=== PATIENT | female | born 1975 | race Caucasian/White ===

== ENCOUNTER 2021-02-04 17:35 | Emergency (ER) | payer SELFPAY ==
[~2021-02-04] VITALS: Ht 162.6 cm; Wt 73.0 kg
[2021-02-04] MEDS ORDERED: IBUPROFEN 600MG TABLET PO ONE (18:30)
[2021-02-04] MEDS ORDERED: HYDROCODONE/ACETAMINOPHEN 10/325MG TABLET PO ONE (18:30)
[2021-02-04] MEDS ORDERED: IBUP-2029 MT (20:07)
[2021-02-04] MEDS ORDERED: CYCL10TA7 MT (20:08)
[2021-02-04 20:25] VITALS: BP 146/89
== END 2021-02-04 20:26 | disposition home or self-care (01) ==
LOC: ER 17:35
DX: M79.661 Pain in right lower leg (principal)
CPT/HCPCS: 73090; 73590; 99284